=== PATIENT | male | born 1965 | race Caucasian/White ===

== ENCOUNTER 2023-06-17 13:15 | Emergency (ER) | payer OTHER, SELFPAY ==
[2023-06-17 13:24] VITALS: BP 127/98; PULSE 107; RESP 20; TEMP 36.8; O2SAT 96; BMI 31.6
--- NOTE | 2023-06-17 13:34 | ED_ITS ---
HPI - General Adult General Chief complaint: Headache Stated complaint: HEADACHE Time Seen by Provider: 06/17/23 13:23 Source: patient Mode of arrival: walk-in Limitations: no limitations History of Present Illness HPI narrative: 58-year-old male presents to the emergency Department for left temporal area pain. It's been there continuously for a month. He had a leftover Medrol Dosepak which he took and finished it a few days ago but it didn't help. No trauma or fever. No weakness or numbness and no neck pain. Related Data Previous Rx's Medication Instructions Recorded amoxicillin 500 mg capsule 500 mg PO TID 10 days #30 caps 06/17/23 Allergies Allergy/AdvReac Type Severity Reaction Status Date / Time ciprofloxacin [From Cipro] AdvReac Mild Irritable Verified 06/17/23 13:52 Review of Systems ROS Narrative A ten point review of systems is negative except as noted above. PFSH PFSH Social History Smoking status: Former smoker Exam Narrative Exam Narrative: Nurses note and vital signs reviewed and patient is not hypoxic. General: The patient appears well and in no apparent distress. Patient is resting comfortably on cart. Skin: Warm, dry, no pallor noted. There is no rash noted. Head: Normocephalic, atraumatic Eye: Normal conjunctiva, no drainage Ears, Nose, Mouth, and Throat: oral mucosa is moist. Nares patent. both tympanic membranes and external canals are normal. He has no erythema or swelling on his face including the left temporal area. There is no tenderness. Cardiovascular: Regular Rate and Rhythm Respiratory: Patient is in no distress, no accessory muscle use, lungs are clear to auscultation, no wheezing, rales or rhonchi Back: non-tender GI: soft and nontender Musculoskeletal: The patient has no evidence of calf tenderness, no pitting e kindra, symmetrical pulses noted bilaterally Neurological: A&O, normal speech, upper and lower extremity strength intact. Psychiatric: Cooperative Constitutional Vital Signs, click to edit/add: Last Vital Signs Temp 98.3 F 06/17/23 13:24 Pulse 107 H 06/17/23 13:24 Resp 20 06/17/23 13:24 BP 127/98 H 06/17/23 13:24 Pulse Ox 96 06/17/23 13:24 O2 Del Method Room Air 12/23/23 13:24 Course Vital Signs Vital signs: Vital Signs Temperature 98.3 F 06/17/23 13:24 Pulse Rate 107 H 06/17/23 13:24 Respiratory Rate 20 06/17/23 13:24 Blood Pressure 127/98 H 06/17/23 13:24 Pulse Oximetry 96 06/17/23 13:24 Oxygen Delivery Method Room Air 06/17/23 13:24 Temperature 98.3 F 06/17/23 13:24 Pulse Rate 107 H 06/17/23 13:24 Respiratory Rate 20 06/17/23 13:24 Blood Pressure 127/98 H 06/17/23 13:24 Pulse Oximetry 96 06/17/23 13:24 Oxygen Delivery Method Room Air 06/17/23 13:24 Medical Decision Making MDM Narrative Medical decision making narrative: CT brain per radiologist shows sinusitis. He's's had symptoms for more than a month and he'll be treated with amoxicillin. Treatment diagnosis and follow-up were discussed with the patient. Differential Diagnosis Differential Diagnosis: intracranial hemorrhage, sinusitis Imaging Data CT scan - head: Radiologist's impression: Procedure: CT head/brain wo con EXAM: CT head/brain wo con HISTORY: left temporal pain, no trauma COMPARISON: CT head 09/23/2021. TECHNIQUE: Axial noncontrast CT imaging of the head was performed with coronal and sagittal reformats. This CT exam was performed using one or more of the following dose reduction techniques: Automated exposure control, adjustment of the MA and/or kV according to patient size, or use of iterative reconstruction technique. FINDINGS: Calvarium/skull base: No evidence of acute fracture or destructive lesion. Mastoids and middle ears demonstrate no substantial mucosal disease. Paranasal sinuses: No air fluid levels. Mild mucosal thickening of the paranasal sinuses. Brain: No acute intracranial hemorrhage. No acute large vascular territory infarct. No mass lesion or mass effect. No hydrocephalus. IMPRESSION: 1. No acute intracranial process. 2. Paranasal sinus disease. Electronically authenticated by: JEFFREY GARDNER Date: 06/17/2023 14:59 Discharge Plan Discharge Chief Complaint: Headache Clinical Impression: Sinusitis Patient Disposition: Home, Self-Care Time of Disposition Decision: 15:10 Condition: Good Mode of Transportation: Private Vehicle Prescriptions / Home Meds: New amoxicillin 500 mg capsule 500 mg PO TID 10 Days Qty: 30 0RF Instructions: Sinusitis (ED) Stand Alone Forms: Portal Instructions Referrals: Physician,Non-Staff, MD [Primary Care Provider] - 1 week
--- NOTE | 2023-06-17 13:38 | CT_ITS ---
The [address] [address] Patient Name: CALIN SCHROEDER MRN: [id number] date: 1965 Sex: M Assigned Patient Location: ER Current Patient Location: ER Accession/Order Number: [id number] Exam Date: 06/17/2023 14:30 Report Date: 06/17/2023 14:59 At the request of: CINTHYA VILLEGAS Procedure: CT head/brain wo con EXAM: CT head/brain wo con HISTORY: left temporal pain, no trauma COMPARISON: CT head 09/23/2021. TECHNIQUE: Axial noncontrast CT imaging of the head was performed with coronal and sagittal reformats. This CT exam was performed using one or more of the following dose reduction techniques: Automated exposure control, adjustment of the MA and/or kV according to patient size, or use of iterative reconstruction technique. FINDINGS: Calvarium/skull base: No evidence of acute fracture or destructive lesion. Mastoids and middle ears demonstrate no substantial mucosal disease. Paranasal sinuses: No air fluid levels. Mild mucosal thickening of the paranasal sinuses. Brain: No acute intracranial hemorrhage. No acute large vascular territory infarct. No mass lesion or mass effect. No hydrocephalus. CT/CT head/brain wo con IMPRESSION: 1. No acute intracranial process. 2. Paranasal sinus disease. Electronically authenticated by: JEFFREY GARDNER Date: 06/17/2023 14:59
== END 2023-06-17 15:24 | disposition home or self-care (01) ==
PROVIDERS: Emergency Provider Emergency Medicine
DX: J32.9 Chronic sinusitis, unspecified (principal); Z87.891 Personal history of nicotine dependence
CPT/HCPCS: 70450; 99284